=== PATIENT | female | born 1960 | race Caucasian/White ===

== ENCOUNTER 2019-02-22 07:20 | Emergency (ER) | payer MEDICAID ==
[~2019-02-22] VITALS: Ht 162.6 cm; Wt 111.0 kg
[~2019-02-22 07:20] MED LIST: ALB0.5UD IH; ALBU18HF2 INH; ASPI-1071 PO; ATOR20TA66 PO; BENZ-16 PO; BUDE10.2 INH; CALC-854 PO; CYCL-1 PO; DOCU100C41 PO; DULO-31 PO; EST1T PO; FISH400C3 PO; FURO-150 PO; GABA-532 PO; HYDR-3965 PO; IPRA3AMP31 IH; LURA20TA PO; METO25TA6 PO; MONT10TA21 PO; MULT-1074 PO; SYN0.088T PO; THEO400T PO; TRAM50TA2 PO; VITA1TAB37 PO; VITC500T PO
[2019-02-22 07:23] VITALS: BP 148/92
[2019-02-22] MEDS ORDERED: HYDROcodone/acetaminophen 10/325mg tab PO ONE (07:50)
[2019-02-22] MEDS ORDERED: LIDOcaine 5% patch TP ONE (07:50)
[2019-02-22] MEDS ORDERED: ketorolac trometh inj. 60 MG/2 ML VIAL IM ONE (07:50)
[2019-02-22] MEDS ORDERED: LIDO700A32 TOP (08:02)
[2019-02-22] MEDS ORDERED: MELO-100 PO (08:02)
== END 2019-02-23 08:13 | disposition home or self-care (01) ==
LOC: ER 11:12
DX: G89.29 Other chronic pain (principal); M54.5 Low back pain; M25.559 Pain in unspecified hip; J44.9 Chronic obstructive pulmonary disease, unspecified; Z98.890 Other specified postprocedural states; Z87.891 Personal history of nicotine dependence; Z88.5 Allergy status to narcotic agent; Z79.82 Long term (current) use of aspirin; Z79.899 Other long term (current) drug therapy
CPT/HCPCS: 96372; 99283; J1885

== ENCOUNTER 2019-08-04 11:07 | Day surgery (SDC) | payer MEDICAID ==
[2019-07-27 16:32] LABS: BASOPHILS % (AUTO) 0.5 % (0-1); EOSINOPHILS # (AUTO) 0.1 X10'3 (0-0.9); LYMPHOCYTES # (AUTO) 2.1 X10'3 (1.1-4.8); LYMPHOCYTES % (AUTO) 23.2 % (21-51); MEAN CORPUSCULAR HEMOGLOBIN 30.5 PG (27.0-31.0); MEAN CORPUSCULAR HGB CONC 33.7 g/dL (33.0-36.5); MEAN CORPUSCULAR VOLUME 90.3 FL (78-98); MEAN PLATELET VOLUME 9.4 FL (7.4-10.4); MONOCYTES # (AUTO) 0.6 X10'3 (0-0.9); MONOCYTES % (AUTO) 6.9 % (2-12); NEUTROPHILS # (AUTO) 6.1 X10'3 (1.8-7.7); NEUTROPHILS % (AUTO) 68.4 % (42-75); PRE OP HEMATOCRIT 43.9 % (35.0-45.0); PRE OP HEMOGLOBIN 14.8 g/dL (12.0-16.0); PRE OP PLATELET COUNT 250 X10'3 (140-440); RED BLOOD COUNT 4.86 X10'6 (4.20-5.60); RED CELL DISTRIBUTION WIDTH 14.7 % (11.5-14.5)
[2019-07-27 16:50] LABS: PRE OP PARTIAL THROMB. TIME 25 SECONDS (22-32); PRE OP PROTIME 9.7 SECONDS (9.0-12.0)
[2019-07-27 16:55] LABS: ALBUMIN 3.5 G/DL (3.4-5.0); ALBUMIN/GLOBULIN RATIO 0.9 (1.1-1.5); ALKALINE PHOSPHATASE 115 IU/L (46-116); BLOOD UREA NITROGEN 10 MG/DL (7-18); BUN/CREATININE RATIO 9.1 (6.6-38.0); CALCIUM 9.4 MG/DL (8.5-10.1); CHLORIDE 104 MMOL/L (99-107); PRE OP ALT 31 U/L (30-65); PRE OP ANION GAP 11 (8-16); PRE OP AST 16 U/L (10-37); PRE OP BILIRUB, TOTAL 0.3 MG/DL (0.0-1.0); PRE OP GLUCOSE 101 MG/DL (70-104); PRE OP POTASSIUM 3.5 MMOL/L (3.4-5.1); PRE OP SODIUM 144 MMOL/L (135-145); TOTAL CARBON DIOXIDE 29.1 MMOL/L (24-32); TOTAL PROTEIN 7.5 G/DL (6.4-8.2); eGFR 51 ML/MIN
[2019-07-27 17:03] LABS: PRE OP INR < 0.9 INR
[~2019-08-04] VITALS: Ht 162.6 cm; Wt 115.7 kg
[2019-08-04] VITALS (14 sets, daily range): BP systolic 122–147; BP diastolic 68–90
[~2019-08-04 11:07] MED LIST changes: -ALB0.5UD IH; -ASPI-1071 PO; +ASPI-1265 PO; -ATOR20TA66 PO; +ATOR40TA PO; -BENZ-16 PO; -HYDR-3965 PO; -IPRA3AMP31 IH; +METO-467 PO; -METO25TA6 PO; +NAPR250T4 PO; +TOPI25TA15 PO; -VITC500T PO; +[UNRECOGNIZED DRUG - OTHER] PO; +albuterol 2.5 MG/3 ML nebule NEB ONE; +cefazolin/dext.iso 2gm/50ml 50 ML IV ONE; +famotidine 20mg tablet PO ONE; +vancomycin inj 1,500 MG in normal saline 300ml IV soln IV ONE
[2019-08-04] MEDS ORDERED: triamcinolone acetonide 40mg/ml inj ONE (14:13)
[2019-08-04] MEDS ORDERED: BUPIVAcaine/PF 2.5 mg/ml (0.25%) 30ml vial ONE (14:13)
[2019-08-04] MEDS ORDERED: sevoflurane 250ml liquid IH ONE (14:21)
[2019-08-04] MEDS ORDERED: fentaNYL /PF 50mcg/ml 5ml ampule ONE (14:28)
[2019-08-04] MEDS ORDERED: midazolam 2 mg/2 ml injection ONE (14:28)
[2019-08-04] MEDS ORDERED: ketamine 50mg/5ml syringe ONE (14:42)
[2019-08-04] MEDS ORDERED: ringers solution, lacted 1,000 ML IV SCH (16:06)
[2019-08-04] MEDS ORDERED: meperidine/PF 25mg/ml syringe IV PRN ×2 (16:10)
[2019-08-04] MEDS ORDERED: HYDROmorphone inj. 0.5 MG/0.5 ML DISP.SYRIN IV PRN ×2 (16:10)
[2019-08-04] MEDS ORDERED: ondansetron/PF 4mg/2ml inj IV PRN (16:10)
[2019-08-04] MEDS ORDERED: glycopyrrolate 0.2mg/ml inj ONE (16:28)
[2019-08-04] MEDS ORDERED: ondansetron/PF 4mg/2ml inj ONE (16:28)
[2019-08-04] MEDS ORDERED: ePHEDrine 50MG/ML INJ. ONE (16:28)
[2019-08-04] MEDS ORDERED: LIDOcaine 2% (20mg/ml) 5ml vial ONE (16:28)
[2019-08-04] MEDS ORDERED: rocuronium 10mg/ml inj IV ONE (16:28)
[2019-08-04] MEDS ORDERED: propofol inj 20 ML IV ONE (16:28)
[2019-08-04] MEDS ORDERED: neostigmine methylsulfate 1 MG/ML 10ml vial ONE (16:28)
--- NOTE | 2019-08-04 16:44 | NUR ---
Received from OR via [facility] , accompanied by Anesthesiologist MARVIN and report given by Anesthesiolgist. PATIENT WITH 20G PIV IN RIGHT UE RUNNING LR AT 100. 10L MASK PRESENT WITH 100% SATURATION. LEFT ANTERIOR SHOULDER DRESSING IS PRESENT AND IS CDI. + RADIAL PULSE TO LEFT UE. SLING ON LEFT UE. Addendum: 08/04/19 at 1656 by Marquis Trevino RN, RN Amended: Links added.
--- NOTE | 2019-08-04 18:54 | NUR ---
ALL DC CRITERIA HAS BEEN MET. IV TAKEN OUT WITHOUT COMPLICATIONS. ALL INSTRUCTIONS COVERED AND ALL QUESTIONS ANSWERED. DRESSINGS CDI. OUT VIA WHEELCHAIR TO PERSONAL VEHICLE WHERE PATIENT WAS SECURED IN AND DRIVEN HOME BY FAMILY. AMBULATED, VOIDED. OUT VIA PERSONAL VEHICLE DRIVEN BY FAMILY. Addendum: 08/04/19 at 1925 by Marquis Trevino RN, RN Amended: Links added.
[2019-08-05] MEDS ORDERED: ringers solution, lacted 1,000 ML IV SCH (05:00)
== END 2019-08-04 18:54 | disposition home or self-care (01) ==
LOC: PAS 11:07
PROVIDERS: ATTEND Orthopaedic Surgery
DX: S46.012A Strain of muscle(s) and tendon(s) of the rotator cuff of left shoulder, initial encounter (principal); S46.112A Strain of muscle, fascia and tendon of long head of biceps, left arm, initial encounter; M19.012 Primary osteoarthritis, left shoulder; M94.212 Chondromalacia, left shoulder; M65.812 Other synovitis and tenosynovitis, left shoulder; J44.9 Chronic obstructive pulmonary disease, unspecified; G89.4 Chronic pain syndrome; E78.5 Hyperlipidemia, unspecified; E03.9 Hypothyroidism, unspecified; I25.2 Old myocardial infarction; I11.0 Hypertensive heart disease with heart failure; I50.9 Heart failure, unspecified; F31.9 Bipolar disorder, unspecified; E66.01 Morbid (severe) obesity due to excess calories; Z68.41 Body mass index [BMI] 40.0-44.9, adult; Z87.891 Personal history of nicotine dependence; Z79.899 Other long term (current) drug therapy; Z90.710 Acquired absence of both cervix and uterus; Z87.442 Personal history of urinary calculi; Z98.890 Other specified postprocedural states; X58.XXXA Exposure to other specified factors, initial encounter; Y93.89 Activity, other specified; Y92.89 Other specified places as the place of occurrence of the external cause; Y99.8 Other external cause status; Z88.5 Allergy status to narcotic agent
CPT/HCPCS: 23410; 23430; 29823; 29824; 29826; 36415; 71046; 80053; 82948; 85025; 85610; 85730; 93005; 94640; 94760; C1713; J2001; J2250; J2405; J2704; J2710; J3010; J3301; J3370; J3490; L3650; A4215; A4618; A6250; A6449; A7000; J7120

== ENCOUNTER 2019-08-06 05:08 | Emergency (ER) | payer MEDICAID ==
[~2019-08-06] VITALS: Ht 162.6 cm; Wt 118.2 kg
[~2019-08-06 05:08] MED LIST changes: -albuterol 2.5 MG/3 ML nebule NEB ONE; -cefazolin/dext.iso 2gm/50ml 50 ML IV ONE; -famotidine 20mg tablet PO ONE; -vancomycin inj 1,500 MG in normal saline 300ml IV soln IV ONE
[2019-08-06] MEDS ORDERED: dexamethasone sod phosphate 10mg/ml inj IV STA (05:18)
[2019-08-06] MEDS ORDERED: ALBU8HFA PO (05:20)
[2019-08-06] MEDS ORDERED: DOXY100C43 PO (05:20)
[2019-08-06] MEDS ORDERED: ipratropium/albuterol 3ml nebule NEB ONE (05:20)
[2019-08-06] MEDS ORDERED: PRED20TA PO (05:20)
[2019-08-06 05:57] LABS: ALANINE AMINOTRANSFERASE 23 U/L (12-78); ALBUMIN/GLOBULIN RATIO 0.8 (1.1-1.5); ALKALINE PHOSPHATASE 100 IU/L (46-116); ANION GAP 10 (8-16); ASPARTATE AMINO TRANSFERASE 19 U/L (10-37); BILIRUBIN,TOTAL 0.4 MG/DL (0.1-1.0); BLOOD UREA NITROGEN 6 MG/DL (7-18); BUN/CREATININE RATIO 5.4 (6.6-38.0); CALCIUM 8.3 MG/DL (8.5-10.1); CHLORIDE 103 MMOL/L (99-107); CREATININE 1.11 MG/DL (0.40-0.90); GLUCOSE 121 MG/DL (70-104); POTASSIUM 3.7 MMOL/L (3.5-5.1); SODIUM 136 MMOL/L (135-145); TOTAL CARBON DIOXIDE 23.1 MMOL/L (24-32); TOTAL PROTEIN 6.9 G/DL (6.4-8.2); eGFR 50 ML/MIN
[2019-08-06 06:20] LABS: BASOPHILS % (AUTO) 0.5 % (0-1); EOSINOPHILS # (AUTO) 0.1 X10'3 (0-0.9); EOSINOPHILS % (AUTO) 1.4 % (0-6); HEMATOCRIT 38.2 % (35.0-45.0); HEMOGLOBIN 12.8 g/dl (12.0-16.0); LYMPHOCYTES # (AUTO) 1.8 X10'3 (1.1-4.8); MEAN CORPUSCULAR HEMOGLOBIN 30.6 PG (27.0-31.0); MEAN CORPUSCULAR HGB CONC 33.5 g/dL (33.0-36.5); MEAN CORPUSCULAR VOLUME 91.6 FL (78-98); MEAN PLATELET VOLUME 9.6 FL (7.4-10.4); MONOCYTES # (AUTO) 1.1 X10'3 (0-0.9); MONOCYTES % (AUTO) 10.6 % (2-12); NEUTROPHILS % (AUTO) 69.5 % (42-75); PLATELET COUNT 191 X10'3 (140-440); RED BLOOD COUNT 4.18 X10'6 (4.20-5.60); RED CELL DISTRIBUTION WIDTH 14.9 % (11.5-14.5); WHITE BLOOD COUNT 10.1 X10'3 (4.5-11.0)
[2019-08-06 08:14] VITALS: BP 125/80
== END 2019-08-06 08:52 | disposition home or self-care (01) ==
LOC: ER 05:09
DX: J20.9 Acute bronchitis, unspecified (principal); J44.9 Chronic obstructive pulmonary disease, unspecified; Z98.890 Other specified postprocedural states; Z88.5 Allergy status to narcotic agent; Z79.82 Long term (current) use of aspirin; Z79.899 Other long term (current) drug therapy
CPT/HCPCS: 36415; 71045; 80053; 83605; 83880; 84145; 84484; 85025; 87040; 93005; 94640; 94760; 96374; 99284; J1100

== ENCOUNTER 2020-03-12 11:51 | Day surgery (SDC) | payer MEDICARE, MEDICAID ==
[2020-03-08 16:30] LABS: BASOPHILS % (AUTO) 0.5 % (0-1); EOSINOPHILS # (AUTO) 0.1 X10'3 (0-0.9); LYMPHOCYTES # (AUTO) 1.9 X10'3 (1.1-4.8); LYMPHOCYTES % (AUTO) 21.8 % (21-51); MEAN CORPUSCULAR HEMOGLOBIN 29.5 PG (27.0-31.0); MEAN CORPUSCULAR VOLUME 89.5 FL (78-98); MEAN PLATELET VOLUME 9.8 FL (7.4-10.4); MONOCYTES # (AUTO) 0.7 X10'3 (0-0.9); MONOCYTES % (AUTO) 8.3 % (2-12); NEUTROPHILS # (AUTO) 5.9 X10'3 (1.8-7.7); NEUTROPHILS % (AUTO) 68.4 % (42-75); PRE OP HEMATOCRIT 45.3 % (35.0-45.0); PRE OP PLATELET COUNT 221 X10'3 (140-440); RED BLOOD COUNT 5.07 X10'6 (4.20-5.60); RED CELL DISTRIBUTION WIDTH 14.5 % (11.5-14.5)
[2020-03-08 16:33] LABS: ALBUMIN 3.5 G/DL (3.4-5.0); ALBUMIN/GLOBULIN RATIO 0.9 (1.1-1.5); ALKALINE PHOSPHATASE 121 IU/L (46-116); BLOOD UREA NITROGEN 10 MG/DL (7-18); BUN/CREATININE RATIO 8.5 (6.6-38.0); CALCIUM 9.3 MG/DL (8.5-10.1); CHLORIDE 105 MMOL/L (99-107); CREATININE 1.18 MG/DL (0.40-0.90); PRE OP ALT 35 U/L (30-65); PRE OP ANION GAP 9 (8-16); PRE OP AST 36 U/L (10-37); PRE OP BILIRUB, TOTAL 0.3 MG/DL (0.0-1.0); PRE OP GLUCOSE 104 MG/DL (70-104); PRE OP POTASSIUM 3.6 MMOL/L (3.4-5.1); PRE OP SODIUM 140 MMOL/L (135-145); TOTAL CARBON DIOXIDE 26.1 MMOL/L (24-32); TOTAL PROTEIN 7.2 G/DL (6.4-8.2); eGFR 47 ML/MIN
[~2020-03-12] VITALS: Ht 165.1 cm; Wt 116.8 kg
[2020-03-12] VITALS (8 sets, daily range): BP systolic 100–131; BP diastolic 60–76
[~2020-03-12 11:51] MED LIST changes: +EZET10TA6 PO; -THEO400T PO; +[UNRECOGNIZED DRUG - CODE] PO; -[UNRECOGNIZED DRUG - OTHER] PO; +albuterol 2.5 MG/3 ML nebule NEB ONE; +famotidine 20mg tablet PO ONE
[2020-03-12] MEDS ORDERED: triamcinolone acetonide 40mg/ml inj ONE (15:07)
[2020-03-12] MEDS ORDERED: BUPIVAcaine/PF 2.5 mg/ml (0.25%) 30ml vial ONE (15:07)
[2020-03-12] MEDS ORDERED: cloNIDine hcl/PF 100mcg/ml inj ONE (15:10)
[2020-03-12] MEDS ORDERED: sevoflurane 250ml liquid IH ONE (15:20)
[2020-03-12] MEDS ORDERED: ringers solution, lacted 1,000 ML IV SCH (15:21)
[2020-03-12] MEDS ORDERED: fentaNYL/PF 50MCG/1 ML 2ML syringe IV PRN ×2 (15:25)
[2020-03-12] MEDS ORDERED: labetalol 20mg/4ml (5mg/ml) syringe IV PRN (15:25)
[2020-03-12] MEDS ORDERED: ondansetron/PF 4mg/2ml inj IV PRN (15:25)
[2020-03-12] MEDS ORDERED: HYDROmorphone inj. 0.5 MG/0.5 ML DISP.SYRIN IV PRN ×2 (15:25)
[2020-03-12] MEDS ORDERED: acetaminophen 1,000mg/100ml IV 100 ML IV PRN (15:25)
[2020-03-12] MEDS ORDERED: proCHLORperazine 10 MG/2 ml inj IV PRN (15:25)
[2020-03-12] MEDS ORDERED: meperidine/PF 25mg/ml syringe IV PRN (15:25)
[2020-03-12] MEDS ORDERED: hydrALAZINE 20mg/ml inj. IV PRN (15:25)
[2020-03-12] MEDS ORDERED: dexamethasone sod phosphate 4mg/ml inj. ONE ×2 (15:49→15:50)
[2020-03-12] MEDS ORDERED: ROPIVAcaine 0.5% (5mg/ml) 30ml vial ONE (15:49)
[2020-03-12] MEDS ORDERED: LIDOcaine 2% (20mg/ml) 5ml vial ONE (15:49)
[2020-03-12] MEDS ORDERED: midazolam 2 mg/2 ml injection ONE (15:49)
[2020-03-12] MEDS ORDERED: LIDOcaine 1%/PF 5ML 10 MG/ML VIAL ONE (15:49)
[2020-03-12] MEDS ORDERED: propofol inj 20 ML IV ONE (15:49)
[2020-03-12] MEDS ORDERED: ondansetron/PF 4mg/2ml inj ONE (15:49)
--- NOTE | 2020-03-12 15:56 | NUR ---
Received from OR via [facility], accompanied by Anesthesiologist DR NUNN and report given by Anesthesiologist. PT DROWSY, DENIES PAIN, LEFT ARM W/ISB, NUMB. NO DRESSING. Addendum: 03/12/20 at 1743 by Deana Summers RN Amended: Links added.
--- NOTE | 2020-03-12 17:06 | NUR ---
D/C INSTRUCTIONS GIVEN AND GONE OVER W/PT WHO VERBALIZED UNDERSTANDING, PT D/CD TO HOME VIA W/C TO PRIVATE VEHICLE W/O INCIDENT. Addendum: 03/12/20 at 1747 by Deana Summers RN Amended: Links added.
== END 2020-03-12 17:06 | disposition home or self-care (01) ==
LOC: PAS 11:51
PROVIDERS: ATTEND Orthopaedic Surgery
DX: M24.612 Ankylosis, left shoulder (principal); M19.011 Primary osteoarthritis, right shoulder; M19.012 Primary osteoarthritis, left shoulder; G89.4 Chronic pain syndrome; J44.9 Chronic obstructive pulmonary disease, unspecified; E03.9 Hypothyroidism, unspecified; E78.5 Hyperlipidemia, unspecified; I10 Essential (primary) hypertension; I25.2 Old myocardial infarction; E66.01 Morbid (severe) obesity due to excess calories; Z68.42 Body mass index [BMI] 45.0-49.9, adult; G89.18 Other acute postprocedural pain; I25.10 Atherosclerotic heart disease of native coronary artery without angina pectoris; I48.91 Unspecified atrial fibrillation; F31.9 Bipolar disorder, unspecified; Z86.73 Personal history of transient ischemic attack (TIA), and cerebral infarction without residual deficits; Z98.890 Other specified postprocedural states; Z87.891 Personal history of nicotine dependence; Z11.59 Encounter for screening for other viral diseases; Z90.710 Acquired absence of both cervix and uterus
CPT/HCPCS: 20610; 23700; 36415; 64415; 80053; 82948; 85025; 93005; 94640; 94760; C9803; J0735; J1100; J2001; J2250; J2405; J2704; J3301; J3490; U0003; 87635; A4618; J2795

== ENCOUNTER 2020-04-04 09:48 | Emergency (ER) | payer MEDICARE, MEDICAID ==
[~2020-04-04] VITALS: Ht 162.6 cm; Wt 52.7 kg
[~2020-04-04 09:48] MED LIST changes: -albuterol 2.5 MG/3 ML nebule NEB ONE; -famotidine 20mg tablet PO ONE
[2020-04-04 10:47] LABS: BASOPHILS % (AUTO) 0.5 % (0-1); EOSINOPHILS # (AUTO) 0.1 X10'3 (0-0.9); EOSINOPHILS % (AUTO) 0.8 % (0-6); HEMATOCRIT 44.3 % (35.0-45.0); HEMOGLOBIN 14.6 g/dl (12.0-16.0); LYMPHOCYTES # (AUTO) 1.3 X10'3 (1.1-4.8); LYMPHOCYTES % (AUTO) 15.9 % (21-51); MEAN CORPUSCULAR HEMOGLOBIN 29.4 PG (27.0-31.0); MEAN CORPUSCULAR HGB CONC 32.8 g/dL (33.0-36.5); MEAN CORPUSCULAR VOLUME 89.5 FL (78-98); MEAN PLATELET VOLUME 9.2 FL (7.4-10.4); MONOCYTES # (AUTO) 0.6 X10'3 (0-0.9); MONOCYTES % (AUTO) 7.2 % (2-12); NEUTROPHILS % (AUTO) 75.6 % (42-75); PLATELET COUNT 212 X10'3 (140-440); RED BLOOD COUNT 4.95 X10'6 (4.20-5.60); RED CELL DISTRIBUTION WIDTH 14.4 % (11.5-14.5); WHITE BLOOD COUNT 7.9 X10'3 (4.5-11.0)
[2020-04-04 11:03] LABS: ALANINE AMINOTRANSFERASE 22 U/L (12-78); ALBUMIN 3.3 G/DL (3.4-5.0); ALBUMIN/GLOBULIN RATIO 0.9 (1.1-1.5); ALKALINE PHOSPHATASE 122 IU/L (46-116); ANION GAP 3 (8-16); ASPARTATE AMINO TRANSFERASE 17 U/L (10-37); BILIRUBIN,TOTAL 0.3 MG/DL (0.1-1.0); BLOOD UREA NITROGEN 15 MG/DL (7-18); BUN/CREATININE RATIO 12.8 (6.6-38.0); CALCIUM 9.1 MG/DL (8.5-10.1); CHLORIDE 107 MMOL/L (99-107); CREATININE 1.17 MG/DL (0.40-0.90); GLUCOSE 127 MG/DL (70-104); SODIUM 143 MMOL/L (135-145); TOTAL CARBON DIOXIDE 32.6 MMOL/L (24-32); TOTAL PROTEIN 6.8 G/DL (6.4-8.2); eGFR 48 ML/MIN
--- NOTE | 2020-04-04 11:45 | NUR ---
TO CT VIA W/C
[2020-04-04 11:52] LABS: CLARITY,URINE CLEAR (Clear); COLOR,URINE STRAW (Yellow); GLUCOSE, URINE NEGATIVE (Neg); KETONES,URINE NEGATIVE (Neg); LEUKOCYTE ESTERASE ,URINE NEGATIVE (Neg); NITRITES, URINE NEGATIVE (Neg); OCCULT BLOOD,URINE NEGATIVE (Neg); PH,URINE 6.5 (4.8-8.0); PROTEIN,URINE NEGATIVE (Neg); UROBILINOGEN,URINE 0.2 E.U/dL (0.2-1.0)
[2020-04-04 11:56] LABS: UA COLLECTION TYPE CLN CATCH MIDSTREAM
[2020-04-04 12:56] VITALS: BP 139/83
== END 2020-04-04 12:58 | disposition home or self-care (01) ==
LOC: ER 09:49
DX: R53.83 Other fatigue (principal); R61 Generalized hyperhidrosis; R51 Headache; I11.0 Hypertensive heart disease with heart failure; I50.9 Heart failure, unspecified; J44.9 Chronic obstructive pulmonary disease, unspecified; E11.65 Type 2 diabetes mellitus with hyperglycemia; F32.9 Major depressive disorder, single episode, unspecified; Z87.891 Personal history of nicotine dependence; Z88.5 Allergy status to narcotic agent; Z79.82 Long term (current) use of aspirin; Z79.899 Other long term (current) drug therapy
CPT/HCPCS: 36415; 70450; 71045; 80053; 81003; 82948; 84443; 84484; 85025; 93005; 99285

== ENCOUNTER 2021-05-18 05:34 | Emergency (ER) | payer MEDICARE, MEDICAID ==
[~2021-05-18] VITALS: Ht 157.5 cm; Wt 113.2 kg
[~2021-05-18 05:34] MED LIST changes: +ASPI-1 PO; -FURO-150 PO; +NAPR-1170 PO; -NAPR250T4 PO; +THEO300T10 PO; -[UNRECOGNIZED DRUG - CODE] PO
[2021-05-18] MEDS ORDERED: acetaminophen 325mg tablet PO ONE ×2 (05:40→07:45)
[2021-05-18] MEDS ORDERED: ibuprofen tablet 400 MG TABLET PO ONE (05:40)
[2021-05-18] MEDS ORDERED: ketorolac tromethamine 15mg/ml inj. IV ONE (06:05)
[2021-05-18 07:02] VITALS: BP 118/74
[2021-05-18] MEDS ORDERED: ondansetron/PF 4mg/2ml inj IV ONE (07:45)
[2021-05-18] MEDS: HYDROcodone/acetaminophen 5mg/325mg tablet PO ONE ×2 (07:55→08:06)
[2021-05-18] MEDS ORDERED: ACET-812 PO (09:35)
[2021-05-18] MEDS ORDERED: IBUP-1985 PO (09:35)
== END 2021-05-18 10:38 | disposition home or self-care (01) ==
LOC: ER 05:35
DX: S82.851A Displaced trimalleolar fracture of right lower leg, initial encounter for closed fracture (principal); I11.0 Hypertensive heart disease with heart failure; I50.9 Heart failure, unspecified; J44.9 Chronic obstructive pulmonary disease, unspecified; Z88.6 Allergy status to analgesic agent; Z79.82 Long term (current) use of aspirin; Z79.899 Other long term (current) drug therapy; W06.XXXA Fall from bed, initial encounter; Y93.89 Activity, other specified; Y92.89 Other specified places as the place of occurrence of the external cause; Y99.8 Other external cause status
CPT/HCPCS: 29515; 70450; 72125; 73610; 73700; 96374; 96375; 99285; J1885; J2405

== ENCOUNTER 2022-08-18 07:36 | Day surgery (SDC) | payer MEDICARE, MEDICAID ==
[~2022-08-18] VITALS: Ht 162.6 cm; Wt 104.1 kg
[~2022-08-18 07:36] MED LIST changes: +ACET-812 PO; +IBUP-1985 PO
[2022-08-18 07:50] VITALS: BP 147/77
[2022-08-18] MEDS ORDERED: PRE5T PO (08:02)
[2022-08-18] MEDS ORDERED: HYDR-4294 PO (08:02)
[2022-08-18] MEDS ORDERED: PRED20TA PO (08:03)
[2022-08-18] MEDS ORDERED: LURA40TA2 PO (08:04)
[2022-08-18] MEDS ORDERED: ATOR10TA70 PO (08:04)
[2022-08-18] MEDS ORDERED: fentaNYL/PF 50MCG/1 ML 2ML syringe ONE (08:15)
[2022-08-18] MEDS ORDERED: MIDAZolam 1 MG/ML 5ML VIAL ONE (08:15)
[2022-08-18 09:35] VITALS: BP 120/76
[2022-08-18 09:45] VITALS: BP 120/75
[2022-08-18 09:55] VITALS: BP 128/73
== END 2022-08-18 10:06 | disposition home or self-care (01) ==
LOC: GI LAB 07:36
PROVIDERS: ATTEND Internal Medicine Gastroenterology
DX: K63.5 Polyp of colon (principal); K57.30 Diverticulosis of large intestine without perforation or abscess without bleeding; K64.8 Other hemorrhoids; Z86.010 Personal history of colon polyps; K59.00 Constipation, unspecified
CPT/HCPCS: 45385; C1773; G0500; J2250; J3010; Z7512; 45380; 88305; 99152; 99153; A4620

== ENCOUNTER 2023-03-11 10:30 | Emergency (ER) | payer MEDICARE, MEDICAID ==
[~2023-03-11] VITALS: Ht 157.5 cm; Wt 85.9 kg
[~2023-03-11 10:30] MED LIST changes: -ACET-812 PO; -ASPI-1 PO; +ATOR10TA70 PO; -ATOR40TA PO; -DULO-31 PO; +HYDR-4294 PO; -LURA20TA PO; +LURA40TA2 PO; +MONT-48 PO; -MONT10TA21 PO; +PRE5T PO; +PRED20TA PO
[2023-03-11] MEDS ORDERED: fentaNYL/PF 50MCG/1 ML 2ML syringe IV ONE (11:35)
[2023-03-11] MEDS ORDERED: ondansetron/PF 4mg/2ml inj IV ONE (11:35)
--- NOTE | 2023-03-11 11:49 | NUR ---
returns from ct
[2023-03-11 12:06] LABS: BASOPHILS % (AUTO) 0.3 % (0-1); EOSINOPHILS % (AUTO) 0.7 % (0-6); HEMOGLOBIN 14.1 g/dl (12.0-16.0); LYMPHOCYTES % (AUTO) 18.2 % (21-51); MEAN CORPUSCULAR HEMOGLOBIN 31.9 PG (27.0-31.0); MEAN CORPUSCULAR HGB CONC 32.8 g/dL (33.0-36.5); MEAN CORPUSCULAR VOLUME 97.2 FL (78-98); MEAN PLATELET VOLUME 9.7 FL (7.4-10.4); MONOCYTES # (AUTO) 0.4 X10'3 (0-0.9); MONOCYTES % (AUTO) 7.3 % (2-12); NEUTROPHILS # (AUTO) 4.1 X10'3 (1.8-7.7); NEUTROPHILS % (AUTO) 73.5 % (42-75); PLATELET COUNT 175 X10'3 (140-440); RED BLOOD COUNT 4.42 X10'6 (4.20-5.60); RED CELL DISTRIBUTION WIDTH 16.7 % (11.5-14.5); WHITE BLOOD COUNT 5.5 X10'3 (4.5-11.0)
[2023-03-11 12:15] LABS: ALANINE AMINOTRANSFERASE 34 U/L (12-78); ALBUMIN 3.4 G/DL (3.4-5.0); ALBUMIN/GLOBULIN RATIO 1.3 (1.1-1.5); ALKALINE PHOSPHATASE 95 IU/L (46-116); ANION GAP 7 (8-16); ASPARTATE AMINO TRANSFERASE 16 U/L (10-37); BILIRUBIN,TOTAL 0.3 MG/DL (0.1-1.0); BLOOD UREA NITROGEN 8 MG/DL (7-18); BUN/CREATININE RATIO 8.1 (10.0-20.0); CALCIUM 9.2 MG/DL (8.5-10.1); CHLORIDE 108 MMOL/L (99-107); CREATININE 0.99 MG/DL (0.40-0.90); GLUCOSE 120 MG/DL (70-104); LIPASE 133 U/L (73-393); POTASSIUM 4.1 MMOL/L (3.5-5.1); SODIUM 143 MMOL/L (135-145); TOTAL CARBON DIOXIDE 28.1 MMOL/L (24-32); TOTAL PROTEIN 6.1 G/DL (6.4-8.2); eGFR 57 ML/MIN
[2023-03-11 13:17] VITALS: BP 129/71
--- NOTE | 2023-03-11 13:28 | NUR ---
Patient reported passing gas and that her abdominal pain is not as bad as it was and less distended as it was.
[2023-03-11 13:46] LABS: CLARITY,URINE CLOUDY (Clear); COLOR,URINE YELLOW (Yellow); GLUCOSE, URINE NEGATIVE (Neg); KETONES,URINE 15 mg/dl (Neg); LEUKOCYTE ESTERASE ,URINE NEGATIVE (Neg); NITRITES, URINE NEGATIVE (Neg); OCCULT BLOOD,URINE LARGE (Neg); PROTEIN,URINE NEGATIVE (Neg); UA COLLECTION TYPE CLN CATCH MIDSTREAM; UROBILINOGEN,URINE 0.2 E.U/dL (0.2-1.0)
[2023-03-11 13:57] LABS: BACTERIA,URINE 1+ /HPF (Neg); RBC,URINE TNTC /HPF (0-2); SQUAMOUS EPITHELIAL CELL,UR FEW /LPF (FEW)
[2023-03-11] MEDS ORDERED: ONDA8TAB13 PO (14:51)
[2023-03-14] MEDS ORDERED: AMOX-117 PO (09:15)
== END 2023-03-11 15:24 | disposition home or self-care (01) ==
LOC: ER 10:31
DX: R10.9 Unspecified abdominal pain (principal); R11.2 Nausea with vomiting, unspecified; K59.00 Constipation, unspecified; I11.0 Hypertensive heart disease with heart failure; E11.9 Type 2 diabetes mellitus without complications; J44.9 Chronic obstructive pulmonary disease, unspecified; E03.9 Hypothyroidism, unspecified; Z88.5 Allergy status to narcotic agent; Z79.899 Other long term (current) drug therapy; Z79.1 Long term (current) use of non-steroidal anti-inflammatories (NSAID); Z79.2 Long term (current) use of antibiotics
CPT/HCPCS: 36415; 74176; 80053; 81001; 83605; 83690; 84145; 84484; 85025; 87040; 87077; 87088; 87186; 93005; 96374; 96375; 99285; J2405; J3010